=== PATIENT | female | born 1975 ===

== ENCOUNTER 2024-11-19 08:15 | Inpatient (IN) | payer OTHER ==
[~2024-11-19] VITALS: Ht 167.6 cm; Wt 70.3 kg
[2024-11-19 09:50] LABS: BASO % 0.7 % (0.1-1.2); EOS # 0.18 (0.04-0.54); EOS % 3.3 % (0.7-7.0); LYMPH # 1.97 (1.18-3.74); LYMPH % 35.9 % (19.3-53.1); MEAN PLATELET VOLUME 11.10 fl (9.4-12.4); MONO # 0.45 (0.24-0.82); MONO % 8.2 % (4.7-12.5); NEUT # 2.84 (1.56-6.13); NEUT % 51.9 % (34.0-71.1); RED CELL DISTRIBUTION WIDTH 12.6 % (11.6-14.4)
[2024-11-19 09:59] LABS: URINE APPEARANCE Clear; URINE BILIRRUBIN Negative (NEGATIVE); URINE BLOOD Negative; URINE COLOR Yellow; URINE GLUCOSE Negative (NEGATIVE); URINE KETONE Negative (NEGATIVE); URINE LEUKOCYTE Negative; URINE NITRATE Negative; URINE PROTEIN Negative (NEGATIVE); URINE UROBILINOGEN 0.2 E.U./dl
[2024-11-19 10:03] LABS: URINE BACTERIA 278.4 uL (0.0-1933); URINE EPITHELIAL CELLS 2.4 uL (0.0-38.8); URINE RBC 5.5 uL (0.0-20.8); URINE WBC 2.3 uL (0.0-23.2)
[2024-11-19 10:08] LABS: URINE CAST 0.14 uL (0.0-1.40)
[2024-11-19 10:21] LABS: INR 0.94
[2024-11-19 10:55] LABS: ALT/SGPT 16.0 U/L (12-78); AST/SGOT 11.0 U/L (15-37); BILIRUBIN TOTAL 0.45 mg/dL (0.3-1.2); BUN CREA RATIO 20.0 (7.0-25.0); CREATININE SERUM 0.83 mg/dL (0.55-1.02); GFR 72.47; GLOBULINA 3.8 G/DL (2.4-3.5); GLUCOSE FASTING 79.0 mg/dL (65-100); OSMOLALITY SERUM 285.0 MOSM/KG (275-295)
[2024-11-19 14:42] VITALS: BP 123/76
[2024-12-14] MEDS ORDERED: DEXAMETHASONE SODIUM PHOSPHATE 4 MG/ML VIAL ONE (08:25)
[2024-12-14] MEDS ORDERED: ONDANSETRON HCL 2 MG/ML VIAL IV PRN (11:00)
[2024-12-14] MEDS ORDERED: ENALAPRILAT DIHYDRATE 1.25 MG/ML VIAL IV PRN (11:00)
[2024-12-14 15:35] VITALS: BP 121/77; O2SAT 94
[2024-12-14] MEDS ORDERED: MAG HYDROX/ALUMINUM HYD/SIMETH 30 ML BLIST.PACK PO ONE (15:57)
[2024-12-14] MEDS ORDERED: TRAMADOL HCL 50 MG TABLET PO SCH (17:00)
[2024-12-14] MEDS ORDERED: ACETAMINOPHEN 500 MG GEL..CAP PO SCH (17:00)
[2024-12-14] MEDS ORDERED: DIPHENHYDRAMINE HCL 75 MG,LIDOCAINE HCL 30 ML,MAG HYDROX/ALUMINUM HYD/SIMETH 30 ML PO SCH (17:00)
[2024-12-14] MEDS ORDERED: CYCLOBENZAPRINE HCL 5 MG TABLET PO SCH (17:00)
[2024-12-14] MEDS ORDERED: Calcium Carbonate 1 TAB TABLET PO SCH (21:00)
[2024-12-15 02:42] VITALS: BP 109/63; O2SAT 95
[2024-12-15 08:34] VITALS: BP 126/78; O2SAT 96
[2024-12-16] MEDS ORDERED: LEVOTHYROXINE SODIUM 112 MCG TABLET PO SCH (06:00)
== END 2024-12-15 16:13 | disposition home or self-care (01) | DRG 627 ==
LOC: O/R 12-14 06:00 → SURG 12-14 06:00 → SURH 12-14 07:00 → SURG 12-14 12:34
PROVIDERS: ADMIT Surgery; ATTEND Surgery
PROC: 0GTG0ZZ Resection of Left Thyroid Gland Lobe, Open Approach (ICD-10-PCS; principal; 2024-12-14 07:00)
DX: E04.2 Nontoxic multinodular goiter (principal)